=== PATIENT | male | born 2000 | race Caucasian/White ===

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

== ENCOUNTER 2020-08-15 12:04 | Outpatient (CLI) | payer OTHER | END 2020-08-15 20:49 | disposition home or self-care (01) | LOC: SRD 12:04 | PROVIDERS: ATTEND Internal Medicine | DX: M25.541 Pain in joints of right hand (principal); M25.531 Pain in right wrist ==